=== PATIENT | male | born 1965 | race American Indian/Alaskan Native ===

== ENCOUNTER 2017-03-19 14:06 | Emergency (ER) | payer BC ==
[2017-03-19 14:22] VITALS: BP 124/83; PULSE 66; RESP 18; TEMP 97.9; O2SAT 100
[2017-03-19 15:06] LABS: URINE BILIRUBIN NEGATIVE (NEGATIVE); URINE BLOOD NEGATIVE (NEGATIVE); URINE COLOR Yellow (YELLOW); URINE GLUCOSE (UA) NORMAL (Normal); URINE KETONE NEGATIVE (NEGATIVE); URINE LEUKOCYTE ESTERASE NEG Leu/uL (Negative); URINE PROTEIN NEGATIVE (NEGATIVE); WBC URINE < 1 /hpf (0-5)
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
== END 2017-03-19 15:37 | disposition home or self-care (01) ==
LOC: C.ER 14:06
DX: F41.9 Anxiety disorder, unspecified (principal)
CPT/HCPCS: 81001; 99283; G0480

== ENCOUNTER 2018-10-20 14:39 | Emergency (ER) | payer BC, OTHER ==
[2018-10-20 14:44] VITALS: RESP 18
[2018-10-20 15:17] LABS: EOS # 0.1 K/uL (0.0-0.7); EOS % 5.3 % (0.0-4.0); HEMOGLOBIN 13.9 g/dL (12.0-18.0); LYMPH # 1.1 K/uL (1.0-4.3); LYMPH % 43.5 % (20.0-40.0); MEAN CELL VOLUME 95.5 fL (80.0-94.0); MEAN CORPUSCULAR HEMOGLOBIN 32.2 pg (27.0-31.0); MEAN CORPUSCULAR HGB CONC 33.7 g/dL (33.0-37.0); MEAN PLATELET VOLUME 7.4 fL (7.2-11.7); MONO # 0.3 K/uL (0.0-0.8); MONO % 10.9 % (0.0-10.0); NEUT % 39.3 % (50.0-75.0); NRBC % 0.1 % (0.0-2.0); RBC 4.33 Mil/uL (4.40-5.90); RED CELL DISTRIBUTION WIDTH 11.9 % (11.5-14.5); WHITE BLOOD COUNT 2.4 K/uL (4.8-10.8)
[2018-10-20 15:18] LABS: URINE BILIRUBIN NEGATIVE (NEGATIVE); URINE BLOOD NEGATIVE (NEGATIVE); URINE CLARITY Clear (Clear); URINE COLOR Yellow (YELLOW); URINE GLUCOSE (UA) NORMAL (Normal); URINE LEUKOCYTE ESTERASE NEG Leu/uL (Negative); URINE PROTEIN NEGATIVE (NEGATIVE)
[2018-10-20 15:25] LABS: ALB/GLOB RATIO 1.1 (1.0-2.1); ALBUMIN 4.7 g/dL (3.5-5.0); ALT/SGPT 19 U/L (21-72); AST/SGOT 27 U/L (17-59); BLOOD UREA NITROGEN 11 mg/dL (9-20); CALCIUM 9.5 mg/dl (8.6-10.4); GFR NON-AFRICAN AMERICAN > 60
[2018-10-20 15:37] LABS: BARBITURATES, UR NEGATIVE (NEGATIVE); BENZODIAZEPINES, UR NEGATIVE (NEGATIVE); OPIATES, UR NEGATIVE (NEGATIVE); PHENCYCLIDINE, UR NEGATIVE (NEGATIVE)
--- NOTE | 2018-10-20 17:07 | C.PDOC ---
History Of Present Illness 53 year old male presents to ED with complaint of being hungry, lonely, and not making sufficient money to support lifestyle. Patient has PMHx of developmental disability. Patient is currently employed by [employer]. Patient has no past psychiatric history. Patient currently has no physical complaints. Time Seen by Provider: 10/20/18 14:48 Chief Complaint (Nursing): Psychiatric Evaluation History Per: Patient History/Exam Limitations: no limitations Onset/Duration Of Symptoms: Unknown Current Symptoms Are (Timing): Still Present Suicide/Self Injury Attempted (Context): None Modifying Factor(s): None Associated Symptoms: denies: Suicidal Thoughts, Suicidal Plan Past Medical History Reviewed: Historical Data, Nursing Documentation, Vital Signs Vital Signs: Last Vital Signs Temp 98.0 F 10/20/18 14:43 Pulse 76 10/20/18 14:43 Resp 18 10/20/18 14:43 BP 109/70 10/20/18 14:43 Pulse Ox 98 10/20/18 14:43 Primary Care Provider: FAMILY PROVIDER,NO - Medical History PMH: Denies: Diabetes, Hepatitis, HIV, HTN, Seizures, Sexually Transmitted Disease Surgical History: No Surg Hx Family History: States: Unknown Family Hx - Social History Hx Alcohol Use: No Hx Substance Use: No - Immunization History Hx Tetanus Toxoid Vaccination: No Hx Influenza Vaccination: No Hx Pneumococcal Vaccination: No Review Of Systems Constitutional: Positive for: Other (hungry, lonely, and unable to support lifestyle due to subjective lack of funds). Negative for: Fever, Chills, Weakness Cardiovascular: Negative for: Chest Pain Gastrointestinal: Negative for: Abdominal Pain Neurological: Negative for: Weakness, Numbness, Headache, Dizziness Psych: Negative for: Suicidal ideation Physical Exam - Physical Exam Appears: Non-toxic, No Acute Distress, Other (black male; flat affect) Skin: Normal Color, Warm, Dry Head: Atraumatic, Normacephalic Neck: Normal ROM, Supple Chest: Symmetrical, No Deformity Cardiovascular: Rhythm Regular, No Murmur Respiratory: No Accessory Muscle Use, No Rales, No Rhonchi, No Wheezing Gastrointestinal/Abdominal: Soft, No Tenderness Extremity: Bilateral: Atraumatic, Normal Color And Temperature, Normal ROM Neurological/Psych: Other (calm, cooperative, appropriate) ED Course And Treatment - Laboratory Results Result Diagrams: 10/20/18 15:07 10/20/18 15:07 Lab Results: Total Bilirubin 0.9 mg/dL (0.2-1.3) 10/20/18 15:07 AST 27 U/L (17-59) 10/20/18 15:07 ALT 19 U/L (21-72) L 10/20/18 15:07 Alkaline Phosphatase 67 U/L (38-126) 10/20/18 15:07 Total Protein 8.8 g/dL (6.3-8.3) H 10/20/18 15:07 Albumin 4.7 g/dL (3.5-5.0) 10/20/18 15:07 Globulin 4.1 gm/dL (2.2-3.9) H 10/20/18 15:07 Albumin/Globulin Ratio 1.1 (1.0-2.1) 10/20/18 15:07 Urine Color Yellow (YELLOW) 10/20/18 15:07 Urine Clarity Clear (Clear) 10/20/18 15:07 Urine pH 5.0 (5.0-8.0) 10/20/18 15:07 Ur Specific [place] 1.014 (1.003-1.030) 10/20/18 15:07 Urine Protein Negative mg/dL (NEGATIVE) 10/20/18 15:07 Urine Glucose (UA) Normal mg/dL (Normal) 10/20/18 15:07 Urine Ketones Negative mg/dL (NEGATIVE) 10/20/18 15:07 Urine Blood Negative (NEGATIVE) 10/20/18 15:07 Urine Nitrate Negative (NEGATIVE) 10/20/18 15:07 Urine Bilirubin Negative (NEGATIVE) 10/20/18 15:07 Urine Urobilinogen 2.0 mg/dL (0.2-1.0) 10/20/18 15:07 Ur Leukocyte Esterase Neg Mirza/uL (Negative) 10/20/18 15:07 Urine WBC (Auto) < 1 /hpf (0-5) 10/20/18 15:07 Urine RBC (Auto) < 1 /hpf (0-3) 10/20/18 15:07 O2 Sat by Pulse Oximetry: 98 (in RA) Pulse Ox Interpretation: Normal Progress Note: Labs ordered with drug screen and UA. Medical Decision Making Medical Decision Making: Developmental Disabilities no acute psych issues Crisis Evaled and referred for opt f/u @ [facility] Disposition Doctor Will See Patient In The: Office Counseled Patient/Family Regarding: Studies Performed, Diagnosis - Disposition Referrals: [facility] [Outside] [facility] [Outside] [facility] [Outside] [facility] [Outside] [facility] [Outside] Disposition: HOME/ ROUTINE Disposition Time: 17:06 Condition: GOOD Additional Instructions: outpatient f/u with [facility] as referred by our Crisis Counselors Instructions: Anxiety, Adult (DC), Learning Disabilities Forms: [facility] (Swedish) - Clinical Impression Clinical Impression: Anxiety, Developmental delay, mild - Scribe Statement The provider has reviewed the documentation as recorded by the Scribe (Kalpana Gonzalez) All medical record entries made by the Scribe were at my direction and personally dictated by me. I have reviewed the chart and agree that the record accurately reflects my personal performance of the history, physical exam, medical decision making, and the department course for this patient. I have also personally directed, reviewed, and agree with the discharge instructions and disposition.
[2018-10-20 18:17] VITALS: BP 112/76; PULSE 75; TEMP 98.2; O2SAT 97
== END 2018-10-20 18:16 | disposition home or self-care (01) ==
LOC: C.ER 14:39
DX: F41.9 Anxiety disorder, unspecified (principal); R62.50 Unspecified lack of expected normal physiological development in childhood
CPT/HCPCS: 80053; 81001; 83735; 84100; 85025; 99283; G0480